=== PATIENT | male | born 1950 | race Caucasian/White ===

== ENCOUNTER 2023-08-12 17:42 | Emergency (ER) | payer OTHER ==
--- NOTE | 2023-08-12 18:21 | RAD REPORT ---
EXAM DESCRIPTION: RAD - Chest Single View - 08/12/2023 6:13 pm CLINICAL HISTORY: CHEST PAIN Chest pain. COMPARISON: Chest Pa And Lat (2 Views) dated 06/27/2021; Chest Pa And Lat (2 Views) dated 12/18/2018 FINDINGS: Portable technique limits examination quality. The lungs are grossly clear. The heart is mildly prominent in size. No displaced fractures.Surgical c lip base of the neck on the left. IMPRESSION: No acute intrathoracic process suspected.
[2023-08-12 18:27] LABS: Anion Gap 9.6 mEq/L (5.0-15.0); Potassium 3.6 mEq/L (3.5-5.1); Troponin High Sensitivity 9.3 pg/mL (<58.9)
[2023-08-12 18:31] LABS: Absolute Basophils 0.1 K/uL (0-0.5); Absolute Eosinophils 0.1 K/uL (0-0.5); Absolute Lymphocytes (CBC) 1.8 K/uL (0.7-4.9); Absolute Monocytes 0.6 K/uL (0.1-1.3); Absolute Neutrophil 3.8 K/uL (1.8-8.0); Basophils % 0.9 % (0-1.3); Eosinophils % 1.8 % (0-4.4); Hematocrit 38.7 % (39.6-49.0); Hemoglobin 13.1 g/dL (13.6-17.9); Lymphocytes % 28.1 % (15.3-44.8); MCH 31.9 pg (27.0-35.0); MPV 9.3 fL (7.6-11.3); Monocytes % 9.8 % (3.3-12.3); Neutrophils % 59.4 % (41.7-73.7); Nucleated Red Blood Cells % 0.2 % (0-0); Platelets 155 thou/uL (152-406); RBC Red Blood Cell Count 4.11 M/uL (4.33-5.43); Red Cell Distribution Width 12.7 % (12.1-15.2)
[2023-08-12 18:36] LABS: PT Prothrombin Time 11.8 SECONDS (9.5-12.5); Protime INR 1.07
[2023-08-12] MEDS ORDERED: NA CHLORIDE 0.9% 1,000 ML ONE (18:41)
[2023-08-12] MEDS ORDERED: LORazepam 2 MG/ML VIAL ONE (18:41)
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
[2023-08-12 20:09] VITALS: BP 133/77; TEMP 97; O2SAT 99
== END 2023-08-12 19:20 | disposition home or self-care (01) ==
LOC: ER 17:42
DX: I47.9 Paroxysmal tachycardia, unspecified (principal); I50.9 Heart failure, unspecified
CPT/HCPCS: 85025; 80048; 36415; 85610; 84484; 83880; 71045; J7030; 93005

== ENCOUNTER 2024-03-07 12:58 | Emergency (ER) | payer OTHER ==
[2024-03-07] MEDS ORDERED: MAGNESIUM SULFATE 1 gm IVPB 1 GM/100 ML BAG IV ONE (13:13)
[2024-03-07] MEDS ORDERED: NA CHLORIDE 0.9% 500 ML ONE (13:13)
[2024-03-07] MEDS ORDERED: METOPROLOL TARTRATE 5 MG/5 ML INJ IV ONE (13:13)
[2024-03-07 13:31] LABS: Absolute Eosinophils 0.2 K/uL (0-0.5); Absolute Lymphocytes (CBC) 1.8 K/uL (0.7-4.9); Absolute Monocytes 0.7 K/uL (0.1-1.3); Basophils % 0.8 % (0-1.3); Eosinophils % 2.8 % (0-4.4); Hematocrit 43.1 % (39.6-49.0); Hemoglobin 14.9 g/dL (13.6-17.9); Lymphocytes % 31.3 % (15.3-44.8); MCH 32.4 pg (27.0-35.0); MCHC 34.6 g/dL (32.0-36.0); MCV 93.7 fL (80-100); Monocytes % 11.9 % (3.3-12.3); Neutrophils % 53.2 % (41.7-73.7); Platelets 135 thou/uL (152-406); Red Cell Distribution Width 12.4 % (12.1-15.2)
[2024-03-07 13:43] LABS: Anion Gap 7.7 mEq/L (5.0-15.0); Potassium 3.7 mEq/L (3.5-5.1); Troponin High Sensitivity 17.5 pg/mL (<58.9)
--- NOTE | 2024-03-07 14:55 | RAD REPORT ---
EXAMINATION: ONE VIEW CHEST XR CLINICAL INDICATION: Male, 73 years old.,CHEST PAIN TECHNIQUE: Frontal chest projection is submitted. Examination is limited by patient positioning and t echnique. COMPARISON: 08/12/2023 FINDINGS: The lungs are well inflated and clear. Elevation of the left hemidiaphragm again seen. No pneumothora x or sizable effusion. The heart is normal in size. Mediastinal contours are unremarkable. IMPRESSION: No acute intrathoracic abnormalities or significant interval change.
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
[2024-03-09 16:08] VITALS: BP 125/73; O2SAT 99
--- NOTE | 2024-03-11 12:11 | EKG ---
Test Date: 2024-03-07 Test Time: 13:29:09 Manager Endoscopy: GATO MEASUREMENT RESULTS: Intervals: Rate: 75 AK: 190 QRSD: 108 QT: 402 QTc: 448 [place]: P: 96 AK: 190 QRS: 4 T: 90 INTERPRETIVE STATEMENTS: Normal sinus rhythm Nonspecific ST and T wave abnormality Abnormal ECG Compared to ECG 03/07/2024 13:06:31 Atrial fibrillation no longer present Left-axis deviation no longer present Possible ischemia no longer present ST (T wave) deviation still present Electronically Signed On 03-11-24 12:08:07 CENTRAL COMMUNICATIONS SPECIALIST by Renzo Monk
--- NOTE | 2024-03-11 12:11 | EKG ---
Test Date: 2024-03-07 Test Time: 13:06:31 Cotton Cleaner: VIKTORIA MEASUREMENT RESULTS: Intervals: Rate: 147 NE: QRSD: 92 QT: 354 QTc: 554 [place]: P: NE: QRS: -30 T: 101 INTERPRETIVE STATEMENTS: Atrial fibrillation with rapid ventricular response Left axis deviation ST & T wave abnormality, consider lateral ischemia Abnormal ECG Compared to ECG 08/12/2023 17:48:00 Left-axis deviation now present Sinus tachycardia no longer present Atrial premature complex(es) no longer present ST (T wave) deviation still present Possible ischemia still present Electronically Signed On 03-11-24 12:08:41 OFFICE ADMINISTRATIVE ASSISTANT by Renzo Monk
== END 2024-03-07 16:21 | disposition home or self-care (01) ==
LOC: ER 12:58
DX: I48.0 Paroxysmal atrial fibrillation (principal); I11.0 Hypertensive heart disease with heart failure; I50.9 Heart failure, unspecified; E78.00 Pure hypercholesterolemia, unspecified; Z88.0 Allergy status to penicillin; Z95.1 Presence of aortocoronary bypass graft
CPT/HCPCS: 96365; 93005 ×2; 85025; 80048; 36415; 84484; 83880; 71045; 96375; 99285; J3475; J7040